=== PATIENT | female | born 1970 | race African-American/Black ===

== ENCOUNTER 2021-02-18 16:16 | Outpatient (CLI) | payer OTHER, SELFPAY ==
--- NOTE | ~2021-02-18 | MM_ITS ---
EXAMINATION: MM screening yuki BI w atif HISTORY: Screening TECHNIQUE: Craniocaudal and mediolateral oblique 3-D tomosynthesis images were obtained and synthetic 2-D images were generated. CAD analysis was submitted and interpreted. COMPARISON: Comparison to multiple prior studies sequentially, with oldest reviewed study dated 02/2012. BREAST PARENCHYMAL COMPOSITION: The breasts are heterogenously dense, which may obscure small masses. FINDINGS: There is no evidence of suspicious mass, calcification, or architectural distortion to sugg est malignancy in either breast. There has been no suspicious interval change. IMPRESSION: 1. No mammographic evidence of malignancy. 2. Recommend routine screening mammography in one year. BI-RADS CATEGORY 1 - NEGATIVE Reviewed, dictated and finalized at location A.
== END 2021-02-18 16:17 | disposition home or self-care (01) ==
LOC: ANHIMG 16:18
PROVIDERS: PCP Internal Medicine; Visit Provider Obstetrics & Gynecology
DX: Z12.31 Encounter for screening mammogram for malignant neoplasm of breast (principal)
CPT/HCPCS: 77063; 77067

== ENCOUNTER 2022-06-05 08:05 | Outpatient (RCR) | payer OTHER, SELFPAY ==
--- NOTE | 2022-06-05 09:10 | PTOPEVAL ---
Thank you for referring Huyen Miller to [facility], for the diagnosis of vestibular rehab/dizziness. She is scheduled to be seen for therapy? 1-2 x/week for 5 weeks. Please review, sign, date and return this plan of care REVA. I agree with and certify that the following plan of care is medically necessary. Referring Physician Date Attending Provider: Camilo Griffith DO Past Medical History Source of Past Medical History Patient Neurological History Hx Neurological Disorders No Significant History Cardiovascular History Hx Cardiac Disorders No Significant History Respiratory History Hx Asthma Yes: inhaler- seasonal; allergies Gastrointestinal History Hx Gastrointestinal Disorders No Significant History Genitourinary History Hx Genitourinary Disorders No Significant History Musculoskeletal History Hx Musculoskeletal Disorders No Significant History Endocrine History Hx Endocrine Disorders No Significant History Evaluation Information Diagnosis dizziness/vertigo Onset May 14, 2022 Prior Level of Function Activity Level (Last 3 Months) Activity of Daily Living Ability Independent Indoor/Home Mobility Independent Community Mobility Independent Stairs Ability Independent Functional Cognition (Planning, Shopping Independent , Taking Medications) Cooking Yes Cleaning Yes Laundry Yes Shopping Yes Driving Yes Comments Additional Prior Level of Function active lifestyle; prior to Comments dizziness walk 5-6 miles/day, since dizziness, about 1/2 mile; Pain Assessment Self Report Pain Level 0 Pain Score 0: Self Report Cervical ROM Comments active ROM of neck is WNL Vestibular Evaluation Vestibular Medical Information Past Vestibular History Back Pain,Sinus/Allergy Issues ,Visual Issues Medical History Comments taking meclazine-- at night only, due to making her drowsy ; seasonal allergies, have glasses for reading only-last eye exam about 1 yr ago, feel like some issues with seeing up close and to eye dr soon; Recent Symptoms Nausea/Vomiting,Recent Travel Other Symptoms Comments spinning; rated dizziness at 4/10, (0/no to 10/hospitalized ); Onset of Symptoms this was first bout with dizziness: was in [place]
--- NOTE | 2022-06-10 16:16 | PCPTNOTE ---
pt did not show for today's appt;
--- NOTE | 2022-06-18 13:34 | PCPTNOTE ---
Patient did not show up for scheduled appointment this date. Called and was unable to leave a message, due to mailbox being full.
--- NOTE | 2022-06-24 14:11 | PCPTNOTE ---
Patient did not show up for scheduled appointment this date. Called and spoke to patient and she stated that had been exposed to Covid, that's why she hasn't been here. Explained to patient that she needs to call to let us know, and gave her the phone number.
--- NOTE | 2022-07-01 15:42 | PCPTNOTE ---
Patient did not show up for scheduled appointment this date. Called and unable to leave a message due to mailbox being full.
--- NOTE | 2022-07-13 10:52 | PCPTNOTE ---
PHYSICAL THERAPY DISCHARGE 07-13-22 Attending Provider: Camilo Griffith DO Patient:Huyen Miller Date of :1970 Ms. Miller has not returned for any further treatments since the initial evaluation on 06/05/2022, for dizziness; therefore she will be discharged at this time. Thank you for referring this patient to [facility].
--- NOTE | 2022-08-05 11:49 | PCPTNOTE ---
PHYSICAL THERAPY DISCHARGE 08-05-22 Attending Provider: Camilo Griffith DO Patient:Huyen Miller Date of :1970 Patient has not returned for any further treatments since the initial evaluation on 06/05/2022, for the diagnosis of dizziness, therefore she will be discharged. Thank you for referring this patient to [facility].
== END 2022-07-13 14:31 | disposition home or self-care (01) ==
LOC: ANHPT 08:05
PROVIDERS: PCP Internal Medicine; Visit Provider Internal Medicine
DX: R42 Dizziness and giddiness (principal)
CPT/HCPCS: 97110; 97161; 99199

== ENCOUNTER 2023-11-12 15:26 | Outpatient (CLI) | payer OTHER, SELFPAY ==
--- NOTE | ~2023-11-12 | MM_ITS ---
EXAMINATION: MM screening yuki BI w atif HISTORY: Screening mammogram, family history of breast cancer in her mother. TECHNIQUE: Craniocaudal and mediolateral oblique 3-D tomosynthesis images were obtained and synthetic 2-D images were generated. CAD analysis was submitted and interpreted. COMPARISON: 02/18/2021, 11/03/2018, 09/22/2018 BREAST PARENCHYMAL COMPOSITION: The breasts are heterogeneously dense, which may obscure small masses . FINDINGS: No suspicious mass, calcification, or architectural distortion are identified in either mitchell ast to suggest malignancy. There has been no suspicious interval change. IMPRESSION: 1. No mammographic evidence of malignancy. 2. Recommend routine screening mammography in one year. BI-RADS Category 1: Negative Reviewed, dictated and finalized at location A. ROPATHIC DOCTOR
== END 2023-11-12 15:27 | disposition home or self-care (01) ==
PROVIDERS: PCP Obstetrics & Gynecology; Visit Provider Obstetrics & Gynecology
DX: Z12.31 Encounter for screening mammogram for malignant neoplasm of breast (principal)
CPT/HCPCS: 77063; 77067